=== PATIENT | male | born 1945 ===

== ENCOUNTER → 2017-08-24 | Outpatient (CLI) | payer MEDICARE, BC ==
--- NOTE | 2017-08-24 15:58 | RADIOLOGY IMAGING REPORT ---
FACILITY: [facility] - [place] PATIENT NAME: Pedro Ricardo : 1945 MR: [id number] V: [id number] EXAM DATE: ORDERING PHYSICIAN: LA DENT TECHNOLOGIST: Location[place] [facility] [place] Patient: Pedro Ricardo : 1945 Visit/Account:[id number] Date of Sevice: 08/24/2017 Exam type: SOFT TISSUE NON-SPECIFIC History: 71-year-old male with a soft tissue mass medial left thigh 4 weeks after a dog bite Comparison: None. TECHNIQUE: Umana scale, color flow and spectral imaging of the mass medial left thigh was performed wi ultrasound. Findings: In the medial left thigh over the area of palpable concern, there is a 6.9 x 1.7 x 6.1 cm complex sub cutaneous mass with solid and cystic components but no internal blood flow. Differential diagnosis i s an abscess versus resolving hematoma. IMPRESSION: 1. 6.9 x 1.7 x 6.1 cm complex solid and cystic mass in the subcutaneous tissues of the medial left t high at the site of reported dog bite. Differential diagnosis is an abscess versus resolving hematom a. Report Dictated By: Dank Hodges MD at 08/24/2017 3:50 PM Report E-Signed By: Dank Hodges MD at 08/24/2017 3:54 PM WSN:[email or web address]
== END ==
LOC: US 02:22
PROVIDERS: ATTEND Family Medicine
DX: R22.42 Localized swelling, mass and lump, left lower limb (principal)
CPT/HCPCS: 76999